=== PATIENT | male | born 1975 | race Caucasian/White ===

== ENCOUNTER 2018-05-24 17:37 | Emergency (ER) | payer SELFPAY ==
[2018-05-24 18:46] VITALS: BP 156/90
[2018-05-24] MEDS ORDERED: Albuterol 2.5 MG/3 ML NEB.SOL* (0.083%) INH ONE (19:19)
[2018-05-24] MEDS ORDERED: predniSONE TAB* 20 MG PO ONE (19:19)
--- NOTE | 2018-05-24 19:39 | UC ---
General HPI - HPI Summary HPI Summary: PT C/O 1.5 WEEKS OF FATIGUE, CHILLS, HEADACHE AND COUGH. ADMITS TO SOB AND WHEEZING. SMOKES 1PPD. - History of Current Complaint Chief Complaint: UCRespiratory Stated Complaint: POSS. PNEUMONIA/COLD CHILLS Time Seen by Provider: 05/24/18 19:09 Hx Obtained From: Patient Onset/Duration: Gradual Onset Timing: Constant Pain Intensity: 0 Associated Signs & Symptoms: Positive: Cough, Fever, SOB, Wheezing - Allergy/Home Medications Allergies/Adverse Reactions: Allergies Allergy/AdvReac Type Severity Reaction Status Date / Time No Known Allergies Allergy Verified 05/24/18 18:46 Home Medications: Home Medications Aspirin [Aspirin Childrens 81 MG] 81 mg PO DAILY 05/24/18 [History Confirmed ] Atorvastatin* [Lipitor*] 20 mg PO 1700 05/24/18 [History Confirmed 05/24/18] metFORMIN* [Glucophage 500 MG TAB *] 500 mg PO DAILY 05/24/18 [History Confirmed 05/24/18] PMH/Surg Hx/FS Hx/Imm Hx Endocrine History: Diabetes, Dyslipidemia - Surgical History Surgical History: None - Family History Known Family History: Positive: Cardiac Disease - Social History Occupation: Employed Full-time Alcohol Use: None Substance Use Type: None Smoking Status (MU): Heavy Every Day Tobacco Smoker Type: Cigarettes - Immunization History Vaccination Up to Date: Yes Review of Systems Constitutional: Fever, Fatigue Skin: Negative Eyes: Negative ENT: Negative Respiratory: Shortness Of Breath, Cough Cardiovascular: Negative Gastrointestinal: Negative Genitourinary: Negative Motor: Negative Neurovascular: Negative Musculoskeletal: Negative Neurological: Negative Psychological: Negative Is Patient Immunocompromised?: No All Other Systems Reviewed And Are Negative: Yes Physical Exam Triage Information Reviewed: Yes Appearance: Well-Appearing Vital Signs: Initial Vital Signs Temp 98.4 F 05/24/18 18:40 Pulse 78 05/24/18 18:40 Resp 18 05/24/18 18:40 BP 156/90 05/24/18 18:40 Pulse Ox 99 05/24/18 18:40 Vital Signs Reviewed: Yes Eyes: Positive: Conjunctiva Clear ENT: Positive: Pharynx normal, TMs normal. Negative: Nasal congestion, Nasal drainage Neck: Positive: Supple, Nontender, No Lymphadenopathy Respiratory: Positive: No respiratory distress, Decreased breath sounds, Rhonchi , Wheezing, Other: - COUGH IS CONGESTED Cardiovascular: Positive: RRR, No Murmur Abdomen Description: Positive: Nontender, No Organomegaly, Soft Bowel Sounds: Positive: Present Musculoskeletal: Positive: ROM Intact, No Edema Neurological: Positive: Alert Psychological: Positive: Age Appropriate Behavior Skin Exam: Normal Diagnostics - Radiology No standard instances Radiology Interpretation Completed By: ED Physician - cxr=? retrocardiac infiltrate Re-Evaluation - Re-Evaluation First Eval Re-Evaluation Time: 20:12 Change: Improved - less wheezing, better aeration, less rhonchi Course/Dx - Course Course Of Treatment: i think bp is illness related. ? infiltrate on cxr, will tx for possible pneumonia. - Differential Dx - Multi-Symptom Provider Diagnoses: Cough, bronchospasm, possible pneumonia. Discharge - Sign-Out/Discharge Documenting (check all that apply): Patient Departure All imaging exams completed and their final reports reviewed: No - Discharge Plan Condition: Stable Disposition: HOME Prescriptions: Albuterol HFA INHALER* [Ventolin HFA Inhaler*] 2 puff INH Q6H #1 mdi DOXYcycline CAP(*) [DOXYcycline 100MG CAP(*)] 100 mg PO BID 10 Days #20 cap predniSONE TAB* [Deltasone 20 MG TAB*] 40 mg PO DAILY 5 Days #10 tab Patient Education Materials: Bronchospasm (ED), Community Acquired Pneumonia ( ED) Forms: *Work Release Referrals: Yolanda Mathew MD [Primary Care Provider] - 5 Days - Billing Disposition and Condition Condition: STABLE Disposition: Home
[2018-05-24] MEDS ORDERED: DOXYcycline CAP(*) 100 MG PO ONE (20:14)
--- NOTE | 2018-05-25 07:13 | RAD ---
INDICATION: Fever and shortness of breath. COMPARISON: Comparison is made with a prior study from October 05, 2017. TECHNIQUE: Dual-energy PA and lateral views of the chest were obtained. FINDINGS: The heart is within normal limits in size. Mediastinal and hilar contours appear within normal limits. The lungs are clear. No pleural effusion is present. IMPRESSION: NO EVIDENCE FOR ACTIVE CARDIOPULMONARY DISEASE. R2
--- NOTE | 2018-05-25 09:16 | UC ---
- Progress Note Progress Note: Patient Name: RAFFI ANDREWS Medical Record#: [id number] Ordering Physician: Marline JACKSON Acct.#: [id number] : 1975 Age: 43 Sex: M Location: [facility] Exam Date: 05/24/181918 ADM Status: DEP ER Order Information: CHEST PA & LAT 2 VWS Accession Number: [id number] CPT: 90018 INDICATION: Fever and shortness of breath. COMPARISON: Comparison is made with a prior study from October 05, 2017. TECHNIQUE: Dual-energy PA and lateral views of the chest were obtained. FINDINGS: The heart is within normal limits in size. Mediastinal and hilar contours appear within normal limits. The lungs are clear. No pleural effusion is present. IMPRESSION: NO EVIDENCE FOR ACTIVE CARDIOPULMONARY DISEASE. R2 <Electronically signed by Tyler Ruby MD in OV> 05/25/18708 Dictated By: Tyler Ruby MD Dictated Date/Time: 05/25/18708 Transcribed Date/Time: 05/25/18707 Copy to: CC:Yolanda Mathew MD; Ami Bruce MD; Marline JACKSON Imaging - [facility] Imaging - [facility] [address] [address] ph ([phone]) ph ([phone]) ph ([phone]) This report is only to be considered final once signed by the Provider(s) as displayed in the "<Electronically Signed by >" field (s). Absence of a signature indicates the report is in a draft status and still needs to be finalized. In the event this document was created by someone other than the signing Provider, the individual initiating the document will be listed in the "Entered by:" or "Dictated by:" murphy. 1 of 1 Re-Evaluation - Re-Evaluation First Eval Re-Evaluation Time: 20:12 Change: Improved - less wheezing, better aeration, less rhonchi Discharge - Sign-Out/Discharge Documenting (check all that apply): Post-Discharge Follow Up All imaging exams completed and their final reports reviewed: Yes - Discharge Plan Condition: Stable Disposition: HOME Prescriptions: Albuterol HFA INHALER* [Ventolin HFA Inhaler*] 2 puff INH Q6H #1 mdi DOXYcycline CAP(*) [DOXYcycline 100MG CAP(*)] 100 mg PO BID 10 Days #20 cap predniSONE TAB* [Deltasone 20 MG TAB*] 40 mg PO DAILY 5 Days #10 tab Patient Education Materials: Community Acquired Pneumonia (ED), Bronchospasm ( ED) Forms: *Work Release Referrals: Yolanda Mathew MD [Primary Care Provider] - 5 Days - Billing Disposition and Condition Condition: STABLE Disposition: Home
== END 2018-05-24 20:24 | disposition home or self-care (01) ==
LOC: UCCORT 17:37
DX: J98.01 Acute bronchospasm (principal); F17.210 Nicotine dependence, cigarettes, uncomplicated; E11.9 Type 2 diabetes mellitus without complications; E78.5 Hyperlipidemia, unspecified; Z79.84 Long term (current) use of oral hypoglycemic drugs; Z79.82 Long term (current) use of aspirin
CPT/HCPCS: 71046; 99212; A9270-GY; G0463; J7512

== ENCOUNTER 2018-08-25 08:38 | Emergency (ER) | payer SELFPAY ==
[2018-08-25 08:52] VITALS: BP 147/88
[2018-08-25] MEDS ORDERED: Ketorolac INJ* 30 MG/ML 1 ML VIAL IM ONE (09:13)
--- NOTE | 2018-08-25 09:14 | UC ---
Back Pain HPI - HPI Summary HPI Summary: The patient is a 43-year-old male with chronic low back pain greater than 6 years. He states that he has learned to live with the pain. If the pain gets severe he generally takes Aleve. His last Aleve was about 36 hours ago. 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 Onset he has had intermittent pain down his left leg and into his left testicle. The pain is not improved with Aleve. Had x-rays performed of his lower back done about 5 years ago. 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 He has had no saddle anesthesia. He denies any problems urinating or moving his bowels. - History of Current Complaint Chief Complaint: UCBackPain Stated Complaint: BACK PAIN Hx Obtained From: Patient Onset/Duration: Gradual Onset, Worse Since - x 2-3 days Timing: Constant Severity Initially: Moderate Severity Currently: Severe Pain Intensity: 8 Pain Scale Used: 0-10 Numeric Character: Sharp, Aching Aggravating Factor(s): Movement, Lifting, Bending Alleviating Factor(s): Rest Full Body (No Head): 1 - pain here 2 - radiation 3 - radiation - Allergies/Home Medications Allergies/Adverse Reactions: Allergies Allergy/AdvReac Type Severity Reaction Status Date / Time No Known Allergies Allergy Verified 08/25/18 08:52 PMH/Surg Hx/FS Hx/Imm Hx Previously Healthy: Yes Endocrine History: Diabetes - pre Cardiovascular History: Hypertension - Surgical History Surgical History: None - Family History Known Family History: Positive: Cardiac Disease, Hypertension - Social History Alcohol Use: None Substance Use Type: None Smoking Status (MU): Heavy Every Day Tobacco Smoker Type: Cigarettes - Immunization History Vaccination Up to Date: Yes Review of Systems All Other Systems Reviewed And Are Negative: Yes Constitutional: Positive: Negative Skin: Positive: Negative Eyes: Positive: Negative ENT: Positive: Negative Respiratory: Positive: Negative Cardiovascular: Positive: Negative Gastrointestinal: Positive: Negative Genitourinary: Positive: Negative Motor: Positive: Negative Neurovascular: Positive: Negative Musculoskeletal: Positive: Arthralgia Neurological: Positive: Negative Psychological: Positive: Negative Physical Exam Triage Information Reviewed: Yes Appearance: Well-Appearing, No Pain Distress, Well-Nourished, Thin Vital Signs: Initial Vital Signs Temp 98.4 F 08/25/18 08:47 Pulse 86 08/25/18 08:47 Resp 16 08/25/18 08:47 BP 147/88 08/25/18 08:47 Pulse Ox 98 08/25/18 08:47 Vital Signs Reviewed: Yes Eyes: Positive: Conjunctiva Clear Respiratory: Positive: Lungs clear, Normal breath sounds, No respiratory distress, No accessory muscle use Cardiovascular: Positive: RRR, No Murmur Musculoskeletal: Positive: ROM Intact, No Edema, Other: - atrophy of left hand interosis muscles (hx cervical disc surgery) Neurological: Positive: Alert, Other: - decreased but symetrical Knee Jerks, toes down going, -SLR Psychological Exam: Normal Skin Exam: Normal Diagnostics - Radiology No standard instances Radiology Interpretation Completed By: Radiologist Summary of Radiographic Findings: Spondylolysis of L5. No spondylolisthesis is noted. Degenerative disc disease. at L3-L4 and L4-L5 Back Pain Course/Dx - Differential Dx/Diagnosis Provider Diagnosis: Sciatic leg pain, Degenerative disc disease, lumbar, Spondylolysis of lumbar region Discharge - Sign-Out/Discharge Documenting (check all that apply): Patient Departure All imaging exams completed and their final reports reviewed: Yes - Discharge Plan Condition: Stable Disposition: HOME Patient Education Materials: Sciatica (ED), Degenerative Disc Disease (ED) Referrals: Yolanda Mathew MD [Primary Care Provider] - 1 Week Arabella Grimm MD [Medical Doctor] - 2 Weeks (if symptoms persist) - Billing Disposition and Condition Condition: STABLE Disposition: Home
== END 2018-08-25 10:30 | disposition home or self-care (01) ==
LOC: UCCORT 08:38
DX: M51.16 Intervertebral disc disorders with radiculopathy, lumbar region (principal); M47.896 Other spondylosis, lumbar region; M79.606 Pain in leg, unspecified; M62.542 Muscle wasting and atrophy, not elsewhere classified, left hand; I10 Essential (primary) hypertension; F17.210 Nicotine dependence, cigarettes, uncomplicated
CPT/HCPCS: 72110; 99212; G0463; J1885